=== PATIENT | male | born 1960 | race African-American/Black ===

== ENCOUNTER 2022-02-23 08:15 | Emergency (ER) | payer OTHER ==
[~2022-02-23] VITALS: Ht 185.4 cm; Wt 105.0 kg
[2022-02-23] MEDS ORDERED: ONDANSETRON HCL 4MG/2ML INJ IV STA (08:39)
[2022-02-23] MEDS ORDERED: SODIUM CHLORIDE 0.9% 1,000 ML IV ONE ×2 (08:45→10:45)
[2022-02-23 09:09] LABS: BASOPHILS % 0.7 % (0.0-2.0); EOSINOPHILS % 2.5 % (0.0-5.0); HEMATOCRIT. 36.7 % (42.0-52.0); HEMOGLOBIN. 12.2 g/dL (14.0-18.0); MEAN CORPUSCULAR HEMOGLOBIN 28.8 pg (28.0-32.0); MEAN CORPUSCULAR VOLUME 86.8 fL (80.0-94.0); MEAN PLATELET VOLUME 8.3 fl (7.4-10.4); NEUTROPHILS % 57.8 % (40.0-76.0); PLATELET 406 x1000/uL (130-400); RED BLOOD CELL COUNT 4.23 mill/uL (4.7-6.1); RED CELL DISTRIBUTION WIDTH 15.1 % (11.6-14.6)
[2022-02-23 09:13] LABS: CHLORIDE 106 mEq/L (98-107)
[2022-02-23 11:45] LABS: CLARITY URINE CLEAR (CLEAR); COLOR URINE YELLOW (YELLOW); KETONES URINE NEGATIVE (NEGATIVE); LEUKOCYTE ESTERASE URINE TRACE (NEGATIVE); NITRITE URINE NEGATIVE (NEGATIVE); OCCULT BLOOD URINE NEGATIVE (NEGATIVE); PROTEIN URINE TRACE (NEGATIVE); UROBILINOGEN URINE 0.2 E.U./dL (0.2-1.0)
[2022-02-23 12:39] VITALS: BP 159/86
[2022-02-23] MEDS ORDERED: NITR100C PO (13:12)
== END 2022-02-23 14:43 | disposition home or self-care (01) ==
LOC: ER 08:15
DX: R55 Syncope and collapse (principal); N39.0 Urinary tract infection, site not specified; E86.0 Dehydration; I49.3 Ventricular premature depolarization; D64.9 Anemia, unspecified; E11.9 Type 2 diabetes mellitus without complications
CPT/HCPCS: 36415; 70450; 71045; 80053; 81003; 82962; 83880; 84484; 85025; 93005; 96361; 96374; 99285; J2405; J7030